=== PATIENT | female | born 1955 | race Caucasian/White ===

== ENCOUNTER → 2016-05-17 | Outpatient (CLI) | payer OTHER ==
--- NOTE | 2016-05-21 08:48 | MM ---
Reason for exam: screening (asymptomatic). Last mammogram was performed 7 years and 7 months ago. History: Patient is postmenopausal. Family history of breast cancer in maternal grandmother at age 80. 2 benign excisional biopsies of the right breast, 1970. Took hormonal contraceptives for 8 years beginning at age 21. Physical Findings: A clinical breast exam by your physician is recommended on an annual basis and results should be correlated with mammographic findings. MG 3D Screening Mammo W/Cad Bilateral CC and MLO view(s) were taken. Prior study comparison: October 22, 2013, mammogram, performed at [facility]. October 26, 2008, bilateral diagnostic digital mammog. September 23, 2007, left breast digital mammogram. The breast tissue is heterogeneously dense. This may lower the sensitivity of mammography. No significant changes when compared with prior studies. ASSESSMENT: Benign, BI-RAD 2 RECOMMENDATION: Routine screening mammogram of both breasts in 1 year.
== END | disposition home or self-care (01) ==
LOC: RADMAMWWP 11:59
PROVIDERS: ATTEND Family Medicine
DX: Z12.31 Encounter for screening mammogram for malignant neoplasm of breast (principal)
CPT/HCPCS: 77063; G0202

== ENCOUNTER → 2017-08-14 | Outpatient (CLI) | payer OTHER ==
--- NOTE | 2017-08-14 12:10 | MR ---
EXAMINATION TYPE: MR lumbar spine wo con DATE OF EXAM: 08/14/2017 11:26 AM COMPARISON: NONE HISTORY: Low back pain Multiplanar, MultiSpin echo imaging of the lumbar spine was performed. L1-L2: Normal disc appearance without desiccation. No herniation, protrusion or disc bulging. No ca nal stenosis is present. Foramina are patent bilaterally. L2-L3: There is moderate disc desiccation. Circumferential disc bulge greatest posteriorly with mild effacement ventral thecal sac. No evidence for herniation or central stenosis. Mild foraminal encroac hment without significant stenosis. L3-L4: Severe disc desiccation with vacuum disc. Circumferential disc bulge greatest posteriorly. Par tial encapsulating spur resulting in disc endplate complex. Facet joint arthropathy and the mild righ t foraminal encroachment. L4-L5: 2 mm anterolisthesis L4 and L5. Moderate to severe disc desiccation. Circumferential disc bulg e greatest posteriorly. Effacement ventral thecal sac. Left lateral recess stenosis. No central steno sis appreciated. Facet joint arthropathy with left-sided foraminal encroachment. L5-S1: Mild disc desiccation noted. No herniation, protrusion or disc bulging. No canal stenosis is present. Foramina are patent bilaterally. Lumbar segments are intact. No paraspinal masses are identified. Conus medullaris has a normal appe arance. Several Tarlov cysts noted of the sacral region measuring up to 2.3 cm. Ventral spondylosis i dentified. Tiny left renal cortical cyst. IMPRESSION: 1. Multilevel degenerative disc disease with disc bulging and varying degrees of foraminal encroachme nt.
== END | disposition home or self-care (01) ==
LOC: RADMRIMAIN 10:48
PROVIDERS: ATTEND Family Medicine
DX: M51.06 Intervertebral disc disorders with myelopathy, lumbar region (principal)
CPT/HCPCS: 72148

== ENCOUNTER → 2017-12-24 | Outpatient (CLI) | payer OTHER ==
--- NOTE | 2017-12-26 13:15 | MM ---
Reason for exam: screening (asymptomatic). Last mammogram was performed 1 year and 7 months ago. History: Patient is postmenopausal and history of other cancer. Family history of breast cancer in maternal grandmother at age 80. 2 benign excisional biopsies of the right breast, 1970. Took hormonal contraceptives for 8 years beginning at age 21. Physical Findings: A clinical breast exam by your physician is recommended on an annual basis and results should be correlated with mammographic findings. MG 3D Screening Mammo W/Cad Bilateral CC and MLO view(s) were taken. Prior study comparison: May 17, 2016, bilateral MG 3d screening mammo w/cad. October 22, 2013, mammogram, performed at [facility]. The breast tissue is extremely dense which could obscure a lesion on mammography. No significant changes when compared with prior studies. ASSESSMENT: Benign, BI-RAD 2 RECOMMENDATION: Routine screening mammogram of both breasts in 1 year.
== END | disposition home or self-care (01) ==
LOC: RADMAMWWP 12:58
PROVIDERS: ATTEND Family Medicine
DX: Z12.31 Encounter for screening mammogram for malignant neoplasm of breast (principal)
CPT/HCPCS: 77063; 77067

== ENCOUNTER → 2019-03-18 | Outpatient (CLI) | payer OTHER ==
--- NOTE | 2019-03-19 11:12 | MM ---
Reason for exam: screening (asymptomatic). Last mammogram was performed 1 year and 3 months ago. History: Patient is postmenopausal and history of other cancer. Family history of breast cancer in maternal grandmother at age 80. 2 benign excisional biopsies of the right breast, 1970. Took hormonal contraceptives for 8 years beginning at age 21. Physical Findings: A clinical breast exam by your physician is recommended on an annual basis and results should be correlated with mammographic findings. MG 3D Screening Mammo W/Cad Bilateral CC and MLO view(s) were taken. Prior study comparison: December 24, 2017, bilateral MG 3d screening mammo w/cad. May 17, 2016, bilateral MG 3d screening mammo w/cad. The breast tissue is heterogeneously dense. This may lower the sensitivity of mammography. Stable benign calcifications. There is no discrete abnormality. No significant changes when compared with prior studies. ASSESSMENT: Benign, BI-RAD 2 RECOMMENDATION: Routine screening mammogram of both breasts in 1 year.
== END | disposition home or self-care (01) ==
LOC: RADMAMWWP 09:32
PROVIDERS: ATTEND Family Medicine
DX: Z12.31 Encounter for screening mammogram for malignant neoplasm of breast (principal)
CPT/HCPCS: 77063; 77067

== ENCOUNTER → 2020-11-21 | Outpatient (CLI) | payer OTHER ==
--- NOTE | 2020-11-21 12:23 | CTL ---
EXAMINATION TYPE: CT Low Dose Lung DATE OF EXAM ORDERED: 11/21/2020 COMPARISON: 10/06/2015 HISTORY: . Low Dose CT Lung Screening CT DLP: 154.[address] CTDI: 4 mGy IV CONTRAST USED: None. SCREENING VISIT: First visit COMPARISON: None. TECHNIQUE: Low dose computed tomography scan was performed through the chest at 1 millimeter thick se ctions and reconstructed images in the coronal plane at [address] DIAGNOSTIC QUALITY: Satisfactory FINDINGS: LUNG NODULES: Nodular density in the region of the lingula measuring 6 mm seen on image 218. No additional nodules seen. LUNGS: COPD: Severity: None Fibrosis: Severity:None Lymph nodes: None Other findings: None RIGHT PLEURAL SPACE: Effusion: None Calcification: None Thickening: None Pneumothorax: None LEFT PLEURAL SPACE: Effusion: None Calcification: None Thickening: None Pneumothorax: None HEART: Heart Size: Mildly enlarged Coronary calcification: Mild Pericardial effusion: None OTHER FINDINGS: Upper abdomen: Sliding type hiatal hernia. Bony thorax: Degenerative changes Supraclavicular region: No significant abnormalityOther: No significant abnormalityI IMPRESSION: Benign FOLLOW UP CT CHEST RECOMMENDATION: Follow-up screening in one year CT LUNG RAD: LUNG RAD CATEGORY 2 benign
== END | disposition home or self-care (01) ==
LOC: RADCTMAIN 11:38
PROVIDERS: ATTEND Family Medicine
DX: Z12.2 Encounter for screening for malignant neoplasm of respiratory organs (principal)
CPT/HCPCS: 71271

== ENCOUNTER → 2021-01-02 | Outpatient (CLI) | payer OTHER ==
--- NOTE | 2021-01-03 09:31 | MM ---
Reason for exam: screening (asymptomatic). Last mammogram was performed 1 year and 10 months ago. History: Patient is postmenopausal and history of other cancer. Family history of breast cancer in maternal grandmother at age 80. 2 benign excisional biopsies of the right breast, 1970. Took hormonal contraceptives for 8 years beginning at age 21. Physical Findings: A clinical breast exam by your physician is recommended on an annual basis and results should be correlated with mammographic findings. MG 3D Screening Mammo W/Cad Bilateral CC and MLO view(s) were taken. Prior study comparison: March 18, 2019, bilateral MG 3d screening mammo w/cad. December 24, 2017, bilateral MG 3d screening mammo w/cad. The breast tissue is heterogeneously dense. This may lower the sensitivity of mammography. Stable benign calcifications. There is no discrete abnormality. No significant changes when compared with prior studies. ASSESSMENT: Benign, BI-RAD 2 RECOMMENDATION: Routine screening mammogram of both breasts in 1 year.
== END | disposition home or self-care (01) ==
LOC: RADMAMWWP 11:21
PROVIDERS: ATTEND Family Medicine
DX: Z12.31 Encounter for screening mammogram for malignant neoplasm of breast (principal)
CPT/HCPCS: 77063; 77067

== ENCOUNTER 2021-03-10 06:58 | Day surgery (SDC) | payer OTHER ==
[2021-03-08 13:56] VITALS: BMI 27.5
[2021-03-10 07:28] VITALS: RESP 16; TEMP 97.1
[2021-03-10] MEDS: LACTATED RINGERS 1,000 ML IV SCH ×2 (07:30→07:47)
[2021-03-10] MEDS ORDERED: PROPOFOL 10 MG/ML 20 ML VIAL IV ONE (07:52)
--- NOTE | 2021-03-10 08:09 | P.PCN ---
Date of Procedure: 03/10/21 Procedure(s) Performed: BRIEF HISTORY: Patient is a 65-year-old pleasant female scheduled for an elective colonoscopy as a part of evaluation prior history of colon polyps and strong family history of colon cancer. HER-2 maternal uncles and maternal grandfather was diagnosed with colon cancer in his 60s and 70s respectively. PROCEDURE PERFORMED: Colonoscopy with snare polypectomy. PREOPERATIVE DIAGNOSIS: History of colon polyps. IV sedation per Anesthesia. PROCEDURE: After informed consent was obtained, the patient, was brought into the endoscopy unit. IV sedation was administered by Anesthesia under continuous monitoring. Digital rectal examination was normal. Initially the Olympus CF-160 flexible video colonoscope was then inserted in the rectum, gradually advanced into the cecum without any difficulty. Careful examination was performed as the scope was gradually being withdrawn. Ileocecal valve and the appendiceal orifice were visualized and appeared normal. Prep was excellent. Mucosa of the cecum, ascending colon appeared normal. In the hepatic flexure there was a 1.5 and admitted broad-based polyp removed by snare polypectomy. In the proximal transverse colon there was a 2 cm broad-based polyp removed by snare polypectomy. Rest of the, transverse colon, descending colon, appeared normal. In the sigmoid: There was a 5 mm polyp removed by snare polypectomy. Rest of the sigmoid colon, and rectum appeared normal. Scattered sigmoid diverticulosis. Retroflexion was performed in the rectum and no lesions were seen. The patient tolerated the procedure well. IMPRESSION: 1.5 cm broad-based hepatic tension polyp status post polypectomy 2 cm broad-based proximal transverse colon polyp serous posterior polypectomy 5 mm sigmoid polyp status post-polypectomy Scattered sigmoid diverticulosis RECOMMENDATIONS: Findings of this examination were discussed with the patient as well as a family. She was advised to follow with the biopsy results. If the biopsy reveals adenoma she can have a repeat colonoscopy in 3 years.
[2021-03-10 09:02] VITALS: BP 109/63; PULSE 58
== END 2021-03-10 09:03 | disposition home or self-care (01) ==
LOC: ORWHC2ENDO 06:58
PROVIDERS: ATTEND Internal Medicine Gastroenterology
DX: Z12.11 Encounter for screening for malignant neoplasm of colon (principal); K57.90 Diverticulosis of intestine, part unspecified, without perforation or abscess without bleeding; D12.3 Benign neoplasm of transverse colon; D12.5 Benign neoplasm of sigmoid colon; I10 Essential (primary) hypertension; E78.5 Hyperlipidemia, unspecified; F32.9 Major depressive disorder, single episode, unspecified; F17.210 Nicotine dependence, cigarettes, uncomplicated; I42.9 Cardiomyopathy, unspecified; Z80.0 Family history of malignant neoplasm of digestive organs; Z86.010 Personal history of colon polyps; Z79.899 Other long term (current) drug therapy
CPT/HCPCS: 88305; 45385; J2704

== ENCOUNTER → 2022-07-12 | Outpatient (CLI) | payer OTHER ==
--- NOTE | 2022-07-12 12:11 | CTL ---
EXAMINATION TYPE: CT Low Dose Lung DATE OF EXAM ORDERED: 07/12/2022 HISTORY: . Lung cancer screening CT DLP: 85.[address] CTDI: 2.3 mGy Automated exposure control for dose reduction was used. SCREENING VISIT: COMPARISON: 11/21/2020 TECHNIQUE: Low dose computed tomography scan was performed through the chest at 1 mm thick sections a nd reconstructed images in multiple planes at 1 mm and [address] DIAGNOSTIC QUALITY: Satisfactory FINDINGS: Biapical pleural thickening. No consolidated pneumonia or pleural effusion. No thorax. Subsegmental c hanges at the lung bases most likely atelectasis. There is a 3 mm subpleural nodule axial image 197. There is a 3 mm nodule superior segment right lower lobe axial image 197. 6 mm nodule lingular segment left upper lobe now measures 3 mm and likely is postinflammatory. There is a nodule on image 126 measuring 4 mm. This is retrospectively stable. There is a 6 mm new nodule in the right upper lobe axial image. Changes mild emphysema are seen diffusely. No pleural effusion or pneumothorax. Heart size stable. Atherosclerotic change aorta of normal caliber. Urinary artery calcifications are seen. No pathologic adenopathy by noncontrast knee. Hypertrophic and degenerative changes of the spin e. There is a curvature of the spine. IMPRESSION: 1. There are multiple 6 mm or less pulmonary nodules some of which are new relative to the prior exam . 2. Mild COPD 3. Mild coronary artery calcification. CT LUNG RAD AND CT CHEST RECOMMENDATION: Lung-Rad 3 Probably Benign: 6 month follow-up LDCT.
== END | disposition home or self-care (01) ==
LOC: RADCTMAIN 11:07
PROVIDERS: ATTEND Internal Medicine
DX: Z12.2 Encounter for screening for malignant neoplasm of respiratory organs (principal); I25.10 Atherosclerotic heart disease of native coronary artery without angina pectoris; J44.9 Chronic obstructive pulmonary disease, unspecified; F17.210 Nicotine dependence, cigarettes, uncomplicated; R91.8 Other nonspecific abnormal finding of lung field
CPT/HCPCS: 71271

== ENCOUNTER → 2022-07-17 | Outpatient (CLI) | payer OTHER ==
--- NOTE | 2022-07-17 13:46 | BD ---
EXAMINATION TYPE: Axial Bone Density DATE OF EXAM: 07/17/2022 CLINICAL HISTORY: 66 years old Female. ICD-10 CODE: M85.852 Osteopenia of left hip Height: 5'7 Weight: 181 FRAX RISK QUESTIONS: History of Fracture in Adulthood: y Secondary Osteoporosis: Current Tobacco Use: y RISK FACTORS HISTORY OF: Postmenopausal woman: y Lost more than 2 inches in height since high school: y MEDICATIONS: Thyroid Medications: Which medication: Levothyroxine How Lon-6 years Additional Medications: heart, statin Additional History: EXAM MEASUREMENTS: Bone mineral densitometry was performed using the [employer] System. Bone mineral density as measured about the Lumbar spine is: ----- L1-L4(G/cm2): 1.019 T Score Values are as follows: ----- L1: -2.2 ----- L2: -2.4 ----- L3: -1.1 ----- L4: -0.2 ----- L1-L4: -1.3 Z Score Values are as follows: ----- L1: -1.2 ----- L2: -1.4 ----- L3: -0.1 ----- L4: 0.9 ----- L1-L4: -0.3 Bone mineral density about the R hip (g/cm2): 1.049 Bone mineral density about the L hip (g/cm2): 0.986 T Score values are as follows: -----R Neck: -0.5 -----L Neck: 0.1 -----R Total: 0.3 -----L Total: -0.2 Z Score values are as follows: -----R Neck: 1.2 -----L Neck: 0.6 -----R Total: 1.2 -----L Total: 0.7 FRAX: The graph provided illustrates a 12.1% chance for a major osteoporotic fx and a0.6 % chance for the hips probability for fx in 10 years time. IMPRESSION: Osteopenia (T Score between -2.5 and -1). There is slightly increased risk of fracture and the patient may be considered for treatment. Re-Screen 2-5 years. NOTE: T-SCORE=SD OF THE YOUNG ADULT MEAN.
--- NOTE | 2022-07-17 14:23 | MM ---
Reason for Exam: Screening (asymptomatic). Last mammogram was performed 1 year(s) and 7 month(s) ago. Patient History: Menarche at age 14. First Full-Term at age 27. Postmenopausal. Patient has history of breast feeding. Hormonal Contraceptives, starting at age 21 for 8 years. 1970, Benign Excisional Biopsy on the right side. 1969, Benign Excisional Biopsy on the right side. Maternal grandmother had breast cancer, age 80. Risk Values: Lily 5 year model risk: 2.8%. NCI Lifetime model risk: 10.3%. Prior Study Comparison: 12/24/2017 Bilateral Screening Mammogram, [facility]. 03/18/2019 Bilateral Screening Mammogram, [facility]. 01/02/2021 Bilateral Screening Mammogram, [facility]. Tissue Density: The breast tissue is heterogeneously dense. This may lower the sensitivity of mammography. Findings: Analyzed By CAD. There is no suspicious group of microcalcifications or new suspicious mass in either breast. Overall Assessment: Negative, BI-RAD 1 Management: Screening Mammogram of both breasts in 1 year. A clinical breast exam by your physician is recommended on an annual basis and results should be correlated with mammographic findings. [facility] will attempt to contact patient to return for supplemental views and ultrasound if indicated. Electronically signed and approved by: Mack Mcmillan DO
== END | disposition home or self-care (01) ==
LOC: RADBDWWP 12:37
PROVIDERS: ATTEND Internal Medicine
DX: Z12.31 Encounter for screening mammogram for malignant neoplasm of breast (principal); M85.89 Other specified disorders of bone density and structure, multiple sites; Z78.0 Asymptomatic menopausal state; Z80.3 Family history of malignant neoplasm of breast
CPT/HCPCS: 77063; 77067; 77080

== ENCOUNTER → 2022-08-28 | Outpatient (CLI) | payer OTHER ==
[~2022-08-28] MED LIST: REGADENOSON 0.4 MG/5 ML SYRINGE IV PRN
--- NOTE | 2022-08-28 16:00 | NM ---
EXAMINATION TYPE: NM stress lexiscan cardiolite DATE OF EXAM: 08/28/2022 COMPARISON: NONE CLINICAL INDICATION: Female, 67 years old with history of I25.84; TECHNIQUE: After the intravenous administration of 10.1 mCi Tc 99m Sestamibi - Cardiolite resting SP ECT images acquired 55 minutes post injection. The patient received 0.4mg Lexiscan, 25.8 mCi Tc 99m Sestamibi - Stress images obtained [address] injection FINDINGS: Review of stress and rest SPECT images demonstrates multiple fixed perfusion defects including the mi d to apical anterior wall as well as the mid to basal septal wall. There is decreased perfusion at th e apex may accentuate stress imaging. Otherwise, no discrete reversibility is seen. Gated analysis shows normal wall motion with an estimated left ventricular ejection fraction of 56 %. TID is calculated at 0.99, within normal limits. IMPRESSION: 1. Fixed perfusion defects along the mid to apical anterior wall as well as the mid to basal septal w all. Findings may be on the basis of prominent soft tissue attenuation artifact. Correlate for possib le areas of old infarct. The former is favored. 2. Unable to exclude a small area of reversibility at the apex of the heart. 3. Estimated LVEF of 56%.
--- NOTE | 2022-08-28 19:20 | CA ---
Lexiscan Nuclear Stress Test Report Name: Kerry Eason Exam Date: 08/28/2022 10:25 Exam Location: [facility] Ht (in): 67 Wt (lb): 183 BSA: 1.95 Ordering Phys: Brandon Urena MD Referring Phys: Romel, Technologist: Talat Mendoza Age: 67 Gender: F : 1955 Procedure CPT: Indications: I25.84 ICD-10 Codes: Patient History: DIFFICULTY IN BREATHING, PALPITATIONS, ELEVATED CHOLESTEROL LEVELS, FAMILY HX OF HEART DISEASE, CURRENT SMOKER 1 PPD X 50 YEARS, PRIOR CARDIAC CATH Medications: Meds past 24 hrs: Pretest Chest Pain: STRESS TEST Lexiscan Protocol Exercise Duration (min:sec): 02:[address] Depressions (mm): Angina Score: Nair Score: Resting HR (bpm): 51 Peak HR (bpm): 78 Resting BP (mmHg): 124 / 61 Peak BP (mmHg): 120 / 68 MPHR: 154 Target HR: 131 % MPHR: 51 METS: 1.0 Total Dose: Peak Dose: Atropine: Double Product: 9360 BP Response: Stress Termination: INFUSION COMPLETE Stress Symptoms: NO SYMPTOMS Stress Summary: ECG ANALYSIS Resting ECG: Stress ECG: CONCLUSIONS Lexiscan Cardiolite stress test Heart rates in the 60s and 70s during Lexiscan infusion Normal blood pressure Twelve-lead EKG shows a left bundle branch block pattern with normal NH interval Secondary ST-T changes noted With Lexiscan infusion no new ST segment abnormalities noted No arrhythmias noted Nuclear portion will be reported separately Dr. Federico Beckett MD (Electronically Signed) Final Date: 28 Aug 2022 19:19
== END | disposition home or self-care (01) ==
LOC: RADNMMAIN 08:30
PROVIDERS: ATTEND Internal Medicine
DX: I25.84 Coronary atherosclerosis due to calcified coronary lesion (principal)
CPT/HCPCS: 93017; 78452; A9500; J2785

== ENCOUNTER → 2023-01-14 | Outpatient (CLI) | payer OTHER ==
--- NOTE | 2023-01-14 12:10 | CTL ---
EXAMINATION TYPE: CT Low Dose Lung DATE OF EXAM ORDERED: 01/14/2023 HISTORY: . Lung cancer screening CT DLP: 162.[address] CTDI: 3.1 mGy Automated exposure control for dose reduction was used. SCREENING VISIT: COMPARISON: 07/12/2022 TECHNIQUE: Low dose computed tomography scan was performed through the chest at 1 mm thick sections a nd reconstructed images in multiple planes at 1 mm and [address] DIAGNOSTIC QUALITY: Satisfactory FINDINGS: Mild emphysematous changes with biapical pleural thickening or scarring. No consolidative pneumonia. No pleural effusion or pneumothorax. Subsegmental groundglass changes most typical of atelectasis. Trace of pericardial fluid. Thoracic aorta measures a maximum dimension of 3.5 cm there is moderate c oronary artery calcification. Mild cardiomegaly. There is a small hiatal hernia. Hypertrophic and degenerative changes of the spine. There is a 3 mm subpleural nodule that previously measured 3 mm . Nodule superior segment right lower lobe axial image 197. There is a new 5 mm subpleural nodule axial image 194 and right lower lobe Stable 4 mm subpleural nodule left lower lobe. Additional pleural thickening and subpleural less than 5 mm pulmonary nodules are stable and likely b enign. There is mild basilar bronchiectasis. There is a small bilateral diaphragmatic hernia containing peritoneal fat. IMPRESSION: 1. The majority of the nodules are stable. There is a single 5 to 6 mm subpleural nodule superior seg ment right lower lobe likely benign. 2. Stable COPD and coronary artery calcifications. CT LUNG RAD AND CT CHEST RECOMMENDATION: Lung-Rad 3 Probably Benign: 6 month follow-up LDCT.
== END | disposition home or self-care (01) ==
LOC: RADCTMAIN 10:37
PROVIDERS: ATTEND Internal Medicine
DX: Z12.2 Encounter for screening for malignant neoplasm of respiratory organs (principal); J44.9 Chronic obstructive pulmonary disease, unspecified; I25.10 Atherosclerotic heart disease of native coronary artery without angina pectoris; F17.210 Nicotine dependence, cigarettes, uncomplicated; R91.8 Other nonspecific abnormal finding of lung field
CPT/HCPCS: 71271

== ENCOUNTER → 2023-02-11 | Outpatient (CLI) | payer OTHER ==
--- NOTE | 2023-02-12 07:17 | CA ---
Transthoracic Echo Report Name: Kerry Eason Age: 67 Gender: F : 1955 Exam Date: 02/11/2023 13:39 Exam Location: [facility] Ht (in): 67 Wt (lb): 185 Ordering Physician: Brandon Urena MD Attending/Referring Phys: Brandon Urena MD [employer] Apoorva Chery RDCS Procedure CPT: Indications: I25.84 CORONARY ATHEROSCLEROSIS DUE TO CALCIFIED C Cardiac Hx: Technical Quality: Good Contrast 1: Total Dose (mL): Contrast 2: Total Dose (mL): MEASUREMENTS (Male / Female) Normal Values 2D ECHO LV Diastolic Diameter PLAX 4.7 cm 4.2 - 5.9 / 3.9 - 5.3 cm LV Systolic Diameter PLAX 3.1 cm IVS Diastolic Thickness 1.2 cm 0.6 - 1.0 / 0.6 - 0.9 cm LVPW Diastolic Thickness 1.1 cm 0.6 - 1.0 / 0.6 - 0.9 cm LV Relative Wall Thickness 0.5 RV Internal Dim ED PLAX 3.0 cm LA Systolic Diameter LX 3.1 cm 3.0 - 4.0 / 2.7 - 3.8 cm LV Diastolic Volume MOD 4C 93.5 cm??? LV Systolic Volume MOD 4C 46.1 cm??? LV Ejection Fraction MOD 4C 50.7 % LV Cardiac Index MOD 4C 1697.3 cm???/min???m??? LV Diastolic Length 4C 8.7 cm LV Systolic Length 4C 7.3 cm LV Diastolic Volume MOD 2C 68.3 cm??? LV Systolic Volume MOD 2C 27.6 cm??? LV Ejection Fraction MOD 2C 59.6 % LV Cardiac Index MOD 2C 1455.4 cm???/min???m??? LV Diastolic Length 2C 7.5 cm LV Systolic Length 2C 6.1 cm LA Volume 49.8 cm??? 18 - 58 / 22 - 52 cm??? LA Volume Index 24.7 cm???/m??? 16 - 28 cm???/m??? M-MODE Aortic Root Diameter MM 3.5 cm MV E Point Septal Separation 0.9 cm AV Cusp Separation MM 2.1 cm DOPPLER AV Peak Velocity 121.5 cm/s AV Peak Gradient 5.9 mmHg MV Area PHT 3.8 cm??? Mitral E Point Velocity 61.5 cm/s Mitral A Point Velocity 92.8 cm/s Mitral E to A Ratio 0.7 MV Deceleration Time 201.6 ms MV E' Velocity 5.4 cm/s Mitral E to MV E' Ratio 11.3 TR Peak Velocity 215.5 cm/s TR Peak Gradient 18.6 mmHg Right Ventricular Systolic Press 23.0 mmHg FINDINGS Left Ventricle Left ventricular ejection fraction is estimated at 50-55 %. Left ventricular cavity size normal. Mildly increased left ventricular wall thickness. Left ventricular systolic function is borderline normal Right Ventricle Normal right ventricular size. Right ventricular systolic pressure within normal limits. Right Atrium Normal right atrial size. Left Atrium Normal left atrial size. Mitral Valve Structurally normal mitral valve. No mitral stenosis, or prolapse. Mild mitral regurgitation Aortic Valve Trileaflet aortic valve. No aortic valve stenosis or regurgitation. Tricuspid Valve Structurally normal tricuspid valve. Mild tricuspid regurgitation. Pulmonic Valve Structurally normal pulmonic valve. Trace pulmonic regurgitation. Pericardium No pericardial effusion. Aorta Normal size aortic root and proximal ascending aorta. CONCLUSIONS 1. Normal left ventricular size with borderline normal systolic function 2. Mild tricuspid and mitral regurgitation Previewed by: Dr. Penny Pereira MD (Electronically Signed) Final Date: 12 February 2023 07:16
== END | disposition home or self-care (01) ==
LOC: RADECHMAIN 13:38
PROVIDERS: ATTEND Internal Medicine
DX: I25.84 Coronary atherosclerosis due to calcified coronary lesion (principal); I08.1 Rheumatic disorders of both mitral and tricuspid valves
CPT/HCPCS: 93306

== ENCOUNTER → 2023-10-14 | Outpatient (CLI) | payer MEDICAID ==
--- NOTE | 2023-10-16 13:12 | MM ---
Reason for Exam: Screening (asymptomatic). Last mammogram was performed 1 year(s) and 3 month(s) ago. Patient History: Menarche at age 14. First Full-Term at age 27. Postmenopausal. Patient has history of breast feeding. Hormonal Contraceptives, starting at age 21 for 8 years. 1970, Benign Excisional Biopsy on the right side. 1969, Benign Excisional Biopsy on the right side. Maternal grandmother had breast cancer, age 80. Risk Values: Lily 5 year model risk: 2.8%. NCI Lifetime model risk: 9.5%. Prior Study Comparison: 03/18/2019 Bilateral Screening Mammogram, [facility]. 01/02/2021 Bilateral Screening Mammogram, [facility]. 07/17/2022 Bilateral MG 3D screening mammo w/cad, [facility]. Tissue Density: The breasts are heterogeneously dense, which may obscure small masses. Findings: Analyzed By CAD. Right breast: There is no suspicious group of microcalcifications or new suspicious mass. Left breast: There is no suspicious group of microcalcifications or new suspicious mass. Overall Assessment: Negative, BI-RAD 1 Management: Screening Mammogram of both breasts in [address] [facility] will attempt to contact patient to return for supplemental views and ultrasound if indicated. Patient should continue monthly self-breast exams. A clinical breast exam by your physician is recommended on an annual basis. This exam should not preclude additional follow-up of suspicious palpable abnormalities. Note on Lily scores and lifetime risk: 1. A Lily score greater than 3% is considered moderate risk. If this is the case, consider specialist referral to assess eligibility for a risk reducing agent. 2. If overall lifetime risk for the development of breast cancer is 20% or higher, the patient may qualify for future screening with alternating mammogram and breast MRI. Electronically signed and approved by: Mack Mcmillan DO
== END | disposition home or self-care (01) ==
LOC: RADMAMWWP 10:17
PROVIDERS: ATTEND Internal Medicine
DX: Z12.31 Encounter for screening mammogram for malignant neoplasm of breast (principal); Z78.0 Asymptomatic menopausal state; Z80.3 Family history of malignant neoplasm of breast
CPT/HCPCS: 77063; 77067

== ENCOUNTER → 2024-01-16 | Outpatient (CLI) | payer MEDICAID ==
--- NOTE | 2024-01-16 13:23 | US ---
EXAMINATION TYPE: US carotid duplex BILAT DATE OF EXAM: 01/16/2024 COMPARISON: NONE CLINICAL INDICATION: Female, 68 years old with history of I65.23 SERENITY CAROTID ARTERY STENOSIS; TECHNIQUE: Grayscale, color Doppler and spectral Doppler evaluation of the bilateral carotid systems and vertebral arteries. Indirect Doppler criteria was utilized. FINDINGS: EXAM MEASUREMENTS: RIGHT: Peak Systolic Velocity (PSV) cm/sec ----- Right CCA: 70.2 ----- Right ICA: 85.5 ----- Right ECA: 92.0 ICA/CCA ratio: 1.2 RIGHT: End Diastole cm/sec ----- Right CCA: 24.6 ----- Right ICA: 30.7 ----- Right ECA: 21.1 LEFT: Peak Systolic Velocity (PSV) cm/sec ----- Left CCA: 68.8 ----- Left ICA: 102.5 ----- Left ECA: 73.3 ICA/CCA ratio: 1.5 LEFT: End Diastole cm/sec ----- Left CCA: 28.1 ----- Left ICA: 42.2 ----- Left ECA: 22.7 VERTEBRALS (direction of flow): Right Vertebral: Antegrade Left Vertebral: Antegrade Rhythm: Normal No significant stenosis IMPRESSION: No ultrasound evidence for hemodynamically significant stenosis of the bilateral visualized carotid a rterial systems. Criteria for Assigning % of Stenosis / Diameter reduction (Estimation based on the indirect measurements of the internal carotid artery velocities (ICA PSV). 1. Normal (no stenosis)=ICA PSV < 125 cm/s: ratio < 2.0: ICA EDV<40 cm/s. 2. Less than 50% stenosis=ICA PSV < 125 cm/s: ratio < 2.0: ICA EDV<40 cm/s. 3. 50 to 69% stenosis=ICA PSV of 125 to 230 cm/s: ration 2.0 ? 4.0: ICA EDV 40-100 cm/s. 4. Greater than 70% stenosis to near occlusion= ICA PSV > 230 cm/s: ratio > 4.0: ICA EDV > 100 cm/s. 5. Near occlusion= ICA PSV velocities may be low or undetectable: variable ratio and ICA EDV. 6. Total occlusion=unable to detect flow. [facility], , 01/16/2024 1:20 PM
[2024-01-16 14:04] LABS: African American GFR (CKD) 83 (>60 ml/min/1.73 sqM); Blood Urea Nitrogen 15 mg/dL (7-17); Non-African American GFR(CKD) 72 (>60 ml/min/1.73 sqM)
--- NOTE | 2024-01-16 15:45 | CTL ---
EXAMINATION TYPE: CT Low Dose Lung DATE OF EXAM ORDERED: 01/16/2024 HISTORY: Nicotine dependence, current smoker, 50 pack-year history. Lung cancer screening CT DLP: [address] CTDI: 2.56 mGy Automated exposure control for dose reduction was used. SCREENING VISIT: Fifth screening visit COMPARISON: CT Low Dose Lung 01/14/2023, 07/12/2022, 11/21/2020, 10/06/2015 TECHNIQUE: Low dose computed tomography scan was performed through the chest at 1 mm thick sections a nd reconstructed images in multiple planes at 1 mm and [address] DIAGNOSTIC QUALITY: Satisfactory FINDINGS: Nodules: Stable pleural-based left lower lobe 3.9 mm pulmonary nodule (series 8, image 32). Stable 3.2 mm medial right upper lobe pulmonary nodule (series 8, image 16). Stable 3.9 mm right midlung pulmonary nodule (series 8, image 31). Stable right anterior midlung 6 mm pulmonary nodule (series 8, image 36). Stable pleural-based medial right lower lobe 4.5 mm pulmonary nodule (series 8, image 37). Stable right lower lobe 5.2 mm pulmonary nodule (series 8, image 42). No new or enlarging pulmonary nodules. LUNGS: COPD: Severity: Minimal Fibrosis: Severity: None Lymph nodes: None Other findings: Biapical pleural-parenchymal scarring. RIGHT PLEURAL SPACE: Effusion: None Calcification: None Thickening: None Pneumothorax: None LEFT PLEURAL SPACE: Effusion: None Calcification: None Thickening: None Pneumothorax: None HEART: Heart Size: Normal Coronary Calcification: Small Pericardial Effusion: None OTHER FINDINGS: Upper abdomen: Please see dedicated CT abdomen and pelvis of same day for findings. Bony thorax: Mild S-shaped scoliotic curvature of the thoracolumbar spine. No acute osseous and amoun t. Supraclavicular region: None Other: Mild atherosclerotic calcification of the aorta and its branches. IMPRESSION: Stable pulmonary nodules measuring up to 6 mm. No new or enlarging pulmonary nodules. CT LUNG RAD AND CT CHEST RECOMMENDATION: Lung-Rad 2 Benign Appearance or Behavior: Continue annual sc reening with LDCT in 12 months. S Modifier (other clinically significant findings): None [facility], Workstation: [facility], 01/16/2024 3:43 PM
--- NOTE | 2024-01-16 17:08 | CT ---
EXAMINATION TYPE: CT abdomen pelvis wo/w con CT DLP: 2200 mGycm, Automated exposure control for dose reduction was used. DATE OF EXAM: 01/16/2024 3:30 PM COMPARISON: CT low-dose lung 01/16/2024 CLINICAL INDICATION:Female, 68 years old with history of R10.32 L groin pain; LLQ pain, groin pain TECHNIQUE: Standard CT of the abdomen and pelvis before and after the uneventful administration 100 mL of Isovue-370 intravenously. Oral contrast was administered. Coronal and sagittal reformats were performed. FINDINGS: LOWER CHEST: Please see dedicated CT chest for findings ABDOMEN LIVER: Unremarkable GALLBLADDER AND BILE DUCTS: Unremarkable. PANCREAS: Unremarkable. SPLEEN: Unremarkable. ADRENAL GLANDS: Unremarkable. KIDNEYS AND URETERS: No evidence of hydronephrosis or renal calculus. The kidneys enhance symmetrical ly. Contrast is demonstrated within both collecting systems on the delayed phase. PELVIS BLADDER: Incompletely distended but grossly unremarkable. REPRODUCTIVE: Calcification within the right uterus which may represent a small calcified fibroid. ABDOMEN & PELVIS STOMACH AND BOWEL: Small hiatal hernia, duodenum is unremarkable. Distal colonic diverticulosis witho ut evidence for acute radiculitis. Mildly redundant sigmoid colon. Enteric contrast reaches the trans verse colon. The appendix is within normal limits. No focal bowel wall thickening or surrounding infl ammatory changes. No evidence of bowel obstruction. PERITONEUM: No evidence of pneumoperitoneum or free fluid. VASCULATURE: Mild atherosclerotic calcifications are present throughout the abdominal aorta and its b ranches. No evidence of aortic aneurysm. MUSCULOSKELETAL: No acute osseous abnormalities. S-shaped scoliotic curvature of the visualized thora cic lumbar spine. Grade 1 anterolisthesis of L4 on L5. Multilevel degenerative disc disease. LYMPH NODES: No gross evidence for lymphadenopathy. SOFT TISSUE/ABDOMINAL WALL: Unremarkable. No inguinal hernia. Small fat filled umbilical hernia. IMPRESSION: 1. No acute abdominal/pelvic process. 2. Colonic diverticulosis without evidence for acute diverticulitis. [facility], , 01/16/2024 5:06 PM
--- NOTE | 2024-01-17 09:18 | MR ---
EXAMINATION TYPE: MR lumbar spine wo con DATE OF EXAM: 01/16/2024 COMPARISON: 08/14/2017 HISTORY: Low back pain into groin TECHNIQUE: Multiplanar, multisequence images of the lumbar spine were acquired without IV contrast. Rotoscoliosis seen convex to the left. L1-L2: Normal disc appearance without desiccation. No herniation, protrusion or disc bulging. No ca nal stenosis is present. Foramina are patent bilaterally. L2-L3: Normal disc appearance without desiccation. No herniation, protrusion or disc bulging. No ca nal stenosis is present. Foramina are patent bilaterally. L3-L4: Moderate disc desiccation with degenerative endplate marrow change. Mild posterior disc bulge without herniation or protrusion. No central stenosis. Facet joint arthropathy. L4-L5: Moderate disc desiccation posterior disc bulge. Grade 1 anterolisthesis of 3 mm. Spinal canal is capacious without central stenosis. Foramina are patent bilaterally. L5-S1: Moderate disc desiccation with degenerative endplate marrow change. Mild posterior disc bulge without herniation or protrusion. No central stenosis. Facet joint arthropathy. Lumbar segments are intact. No paraspinal masses are identified. Conus medullaris has a normal appe arance. IMPRESSION: 1. Multilevel degenerative disc disease with disc bulging. No evidence for herniation or central sten osis. [facility], , 01/17/2024 9:16 AM
== END | disposition home or self-care (01) ==
LOC: RADUSWWP 12:47
PROVIDERS: ATTEND Internal Medicine
DX: Z12.2 Encounter for screening for malignant neoplasm of respiratory organs (principal); R10.32 Left lower quadrant pain; M47.816 Spondylosis without myelopathy or radiculopathy, lumbar region; F17.210 Nicotine dependence, cigarettes, uncomplicated; K57.30 Diverticulosis of large intestine without perforation or abscess without bleeding; M51.369 Other intervertebral disc degeneration, lumbar region without mention of lumbar back pain or lower extremity pain
CPT/HCPCS: 36415; 71271; 72148; 74178; 82565; 84520; 93880

== ENCOUNTER → 2024-05-11 | Outpatient (CLI) | payer MEDICARE ==
--- NOTE | 2024-05-11 08:27 | US ---
EXAMINATION TYPE: US thyroid st tissue head/neck DATE OF EXAM: 05/11/2024 COMPARISON: NONE CLINICAL INDICATION: Female, 68 years old with history of E04.9 NONTOXIC GOITER; Patient states feeli ng lump on left lateral neck but has since gone down. TECHNIQUE: Grayscale and color Doppler imaging of the thyroid gland. FINDINGS: GLAND SIZE: Right Lobe: 3.4 x 1.2 x 2.0 cm Overall Parenchyma: heterogeneous Left Lobe: 3.0 x 1.3 x 1.3 cm Overall Parenchyma: heterogeneous Isthmus Thickness: 0.3 cm NODULES RIGHT: # of nodules measured on right: 0 LEFT: # of nodules measured on left: 0 ISTHMUS: # of nodules measured in the isthmus: 0 Bilateral neck scanned, no evidence of lymphadenopathy. Area of concern scanned at left lateral neck- No abnormality visualized at time of scan IMPRESSION: 1. Area of concern in the lateral neck demonstrates no specific organizing fluid collection mass or lymphadenopathy. 2. Heterogenous thyroid gland correlate with serum markers for thyroiditis. [facility], , 05/11/2024 8:25 AM
== END | disposition home or self-care (01) ==
LOC: RADUSWWP 06:42
PROVIDERS: ATTEND Family Medicine
DX: E07.89 Other specified disorders of thyroid (principal)
CPT/HCPCS: 76536

== ENCOUNTER → 2024-08-11 | Outpatient (CLI) | payer MEDICARE ==
--- NOTE | 2024-08-12 07:23 | BD ---
EXAMINATION TYPE: Axial Bone Density DATE OF EXAM: 08/11/2024 CLINICAL HISTORY: 68 years old Female. ICD-10 CODE: M85.852 DISRD OF BONE DENSITY AND STRUCTURE, LEF T , Additional History: Height: 5 ft 7 1/2 in Weight: 185 FRAX RISK QUESTIONS: Alcohol (3 or more units per day): no Family History (Parent hip fracture): no Glucocorticoids (More than 3mos): no (Ex: prednisone, prednisolone, methylprednisolone, dexamethasone, and hydrocortisone). History of Fracture in Adulthood: yes Secondary Osteoporosis: 1. Type 1 Diabetes: no 2. Hyperthyroidism: no 3. Menopause before 45: no 4. Malnutrition: no 5. Chronic liver disease: no Rheumatoid Arthritis: no Current Tobacco Use: yes RISK FACTORS HISTORY OF: Surgery to Spine/Hip(right/left)/Wrist (right/left): none MEDICATIONS: Thyroid Medications: yes Which medication: synthroid How Lon-8 years Osteoporosis Medications: none EXAM MEASUREMENTS: Bone mineral densitometry was performed using the [employer] System. Bone mineral density as measured about the Lumbar spine is: ----- L1-L4(G/cm2): 1.024 T Score Values are as follows: ----- L1: -2.3 ----- L2: -2.4 ----- L3: -0.8 ----- L4: -0.2 ----- L1-L4: -1.3 Z Score Values are as follows: ----- L1: -1.3 ----- L2: -1.4 ----- L3: 0.2 ----- L4: 0.8 ----- L1-L4: -0.3 Bone mineral density has: increased 0.5 % since study of: 2022 Bone mineral density about the R hip (g/cm2): 1.062 Bone mineral density about the L hip (g/cm2): 0.965 T Score values are as follows: -----R Neck: 0.2 -----L Neck: -0.5 -----R Total: -0.3 -----L Total: -0.4 Z Score values are as follows: -----R Neck: 1.4 -----L Neck: 0.7 -----R Total: 0.6 -----L Total: 0.4 Bone mineral density has: decreased -5.8 % since study of: 2022 FRAX%s: The graph provided illustrates a 12.4 % chance for a major osteoporotic fx and a 0.7 % chance for the hips probability for fx in 10 years time. IMPRESSION: Osteopenia (T Score between -2.5 and -1). There is slightly increased risk of fracture and the patient may be considered for treatment. Re-Screen 2-5 years. NOTE: T-SCORE=SD OF THE YOUNG ADULT MEAN. [facility], , 08/12/2024 7:21 AM
== END | disposition home or self-care (01) ==
LOC: RADBDWWP 14:22
PROVIDERS: ATTEND Internal Medicine
DX: M85.89 Other specified disorders of bone density and structure, multiple sites (principal)
CPT/HCPCS: 77080

== ENCOUNTER → 2024-10-14 | Outpatient (CLI) | payer MEDICARE ==
--- NOTE | 2024-10-14 11:29 | MM ---
Reason for Exam: Screening (asymptomatic). Last screening mammogram was performed 12 month(s) ago. Patient History: Menarche at age 14. First Full-Term at age 27. Postmenopausal. Patient has history of breast feeding. Hormonal Contraceptives, starting at age 21 for 8 years. 1970, Benign Excisional Biopsy on the right side. 1969, Benign Excisional Biopsy on the right side. Maternal grandmother had breast cancer, age 80. Risk Values: Lily 5 year model risk: 2.8%. NCI Lifetime model risk: 9.1%. Prior Study Comparison: 12/24/2017 Bilateral Screening Mammogram, [facility]. 03/18/2019 Bilateral Screening Mammogram, [facility]. 01/02/2021 Bilateral Screening Mammogram, [facility]. 07/17/2022 Bilateral MG 3D screening mammo w/cad, [facility]. 10/14/2023 Bilateral MG 3D screening mammo w/cad, [facility]. Tissue Density: The breasts are heterogeneously dense, which may obscure small masses. Findings: Analyzed By CAD. There are benign-appearing bilateral axillary lymph nodes redemonstrated. There are a few benign calcifications in the bilateral breasts redemonstrated. There is no suspicious group of microcalcifications or new suspicious mass in either breast. Overall Assessment: Benign, BI-RAD 2 Management: Screening Mammogram of both breasts in 1 year. . Patient should continue monthly self-breast exams. A clinical breast exam by your physician is recommended on an annual basis. This exam should not preclude additional follow-up of suspicious palpable abnormalities. Note on Lily scores and lifetime risk: 1. A Lily score greater than 3% is considered moderate risk. If this is the case, consider specialist referral to assess eligibility for a risk reducing agent. 2. If overall lifetime risk for the development of breast cancer is 20% or higher, the patient may qualify for future screening with alternating mammogram and breast MRI. [facility], , 10/14/2024 11:26 AM. Electronically signed and approved by: Venancio Case M.D.
== END | disposition home or self-care (01) ==
LOC: RADMAMWWP 10:44
PROVIDERS: ATTEND Internal Medicine
DX: Z12.31 Encounter for screening mammogram for malignant neoplasm of breast (principal); R92.333 Mammographic heterogeneous density, bilateral breasts; R92.1 Mammographic calcification found on diagnostic imaging of breast; Z78.0 Asymptomatic menopausal state; Z80.3 Family history of malignant neoplasm of breast; Z92.0 Personal history of contraception
CPT/HCPCS: 77063; 77067